=== PATIENT | female | born 1970 | race Caucasian/White ===

== ENCOUNTER 2024-06-19 22:37 | Emergency (ER) | payer BC ==
--- NOTE | 2024-06-19 22:54 | ERPHSYRPT ---
- History of Present Illness Time Seen by Provider: 06/19/24 22:52 Historian: patient Exam Limitations: no limitations Physician History: 53-year-old female presents to our emergency department for evaluation of substernal pain. Patient states she was eating and developed a substernal pain. Patient felt food was lodged in her esophagus. Patient states the food sensat ion then improved. However the pain remained. Pain described as a burning sensation that is localized and slightly to the right. No associated nausea vomiting or diaphoresis. No trauma no fever. No nausea no vomiting. No diaphoresis. Patient denies cardiovascular risk factors. No diabetes no hypertension no high cholesterol. Patient voices no other complaints or concerns at this time. Portions of this note were created with voice recognition technology. There may be grammatical, spelling, punctuation or sound alike errors Timing/Duration: today Activities at Onset: none Quality: aching Location: substernal Chest Pain Radiation: no radiation Severity of Pain-Max: moderate Severity of Pain-Current: mild Modifying Factors: Improves With: nothing Associated Symptoms: denies symptoms Prior Chest Pain/Cardiac Workup: no prior chest pain Nitro Today/Relief: no nitro taken today Aspirin Treatment Today: no aspirin today Allergies/Adverse Reactions: bacitracin Allergy (Unknown, Verified 06/19/24 22:58) cephalexin [From Keflex] Allergy (Unknown, Verified 06/19/24 22:58) neomycin [From Neosporin ([id number])] Allergy (Unknown, Verified 06/19/24 22:58) oxaprozin [From Daypro] Allergy (Unknown, Verified 06/19/24 22:58) polymyxin B [From Neosporin ([id number])] Allergy (Unknown, Verified 06/19/24 22:58) - Review of Systems Constitutional: No Symptoms, No Fever, No Chills Eyes: No Symptoms Ears, Nose, & Throat: No Symptoms Respiratory: No Symptoms, No Cough, No Dyspnea Cardiac: No Symptoms, No Chest Pain, No Edema, No Syncope Abdominal/Gastrointestinal: No Symptoms, No Abdominal Pain, No Nausea, No Vomiting, No Diarrhea Genitourinary Symptoms: No Symptoms, No Dysuria Musculoskeletal: No Symptoms, No Back Pain, No Neck Pain Skin: No Symptoms, No Rash Neurological: No Symptoms, No Dizziness, No Focal Weakness, No Sensory Changes Psychological: No Symptoms Endocrine: No Symptoms Hematologic/Lymphatic: No Symptoms Immunological/Allergic: No Symptoms All Other Systems: Reviewed and Negative - Past Medical History Neurological History: No Pertinent History Cardiac History: No Pertinent History Respiratory History: No Pertinent History Endocrine Medical History: No Pertinent History Musculoskeletal History: No Pertinent History - Nursing Vital Signs Nursing Vital Signs: Initial Vital Signs Temperature 97.8 F 06/19/24 22:39 Pulse Rate 91 H 06/19/24 22:39 Respiratory Rate 18 06/19/24 22:39 Blood Pressure 159/104 06/19/24 22:39 O2 Sat by Pulse Oximetry 100 06/19/24 22:39 Pain Scale Pain Intensity 2 - Physical Exam General Appearance: no apparent distress, alert Eye Exam: PERRL/EOMI, eyes nml inspection Ears, Nose, Throat Exam: normal ENT inspection, TMs normal, moist mucous membranes Neck Exam: normal inspection, non-tender, supple, full range of motion Respiratory Exam: normal breath sounds, lungs clear, airway intact, No respiratory distress Cardiovascular Exam: regular rate/rhythm, normal heart sounds Gastrointestinal/Abdomen Exam: soft, No tenderness, No mass Back Exam: normal inspection, No CVA tenderness, No vertebral tenderness Extremity Exam: normal inspection, normal range of motion Neurologic Exam: alert, oriented x 3, cooperative, normal mood/affect, sensation nml, No motor deficits Skin Exam: normal color, warm, dry Lymphatic Exam: No adenopathy SpO2 Interpretation: normal SpO2: 100 O2 Delivery: Room Air - Course Nursing assessment & vital signs reviewed: Yes EKG Interpreted by Me: RATE (90), Sinus Rhythm, NORMAL AXIS, NORMAL INTERVALS Ordered Tests: Active Orders 24 hr Category Date Time Status AMA [Release AMA] OM.NOW Care 06/19/24 23:41 Completed [employer]ier STAT Care 06/19/24 22:53 Completed EKG-ER Only STAT Care 06/19/24 22:53 Completed IV Insertion STAT Care 06/19/24 22:53 Completed Pulse Oximetry (ED) STAT Care 06/19/24 22:53 Completed CBC W DIFF Stat Lab 06/19/24 23:03 Completed CMP Stat Lab 06/19/24 23:03 Completed D-DIMER QUANTITATIVE Stat Lab 06/19/24 23:03 Completed TROPONIN Q4H Lab 06/19/24 23:03 Completed Medication Summary Discontinued Medications Generic Name Dose Route Start Last Admin Trade Name Freq PRN Reason Stop Dose Admin Al Hydrox/Mg Hydrox/Simethicone Confirm 06/19/24 22:59 Mag Hydrox/Al Hydrox/Simeth 30 Ml Udcup Administered 06/19/24 23:00 Dose 30 ml .ROUTE .STK-MED ONE Lidocaine HCl Confirm 06/19/24 22:59 Lidocaine Hcl 2% Viscous 15 Ml Udcup Administered 06/19/24 23:00 Dose 15 ml .ROUTE .STK-MED ONE Magnesium Hydroxide 45 ml 06/19/24 22:54 06/19/24 23:03 Mag Hydrx/Alum Hyd/Simeth/Lido 45 Ml Bottle PO 06/19/24 22:55 45 ml STAT ONE Administration Lab/Rad Data: Laboratory Result Diagrams 06/19/24 23:03 06/19/24 23:03 Laboratory Results 06/19/24 06/19/24 06/19/24 Range/Units 23:03 23:03 23:03 WBC (3.98-10.04) x10^3/uL RBC (3.93-5.22) x10^6/uL Hgb (11.2-15.7) g/dL Hct (34.1-44.9) % MCV (79.4-94.8) fL MCH (25.6-32.2) pg MCHC (32.2-35.5) g/dL RDW (11.7-14.4) % Plt Count (182-369) x10^3/uL MPV (9.4-12.3) fL Gran % (34.0-71.1) % Immature Gran % (Auto) (0.001-0.429) % Nucleat RBC Rel Count (0.00-0.2) % Eos # (Auto) (0.04-0.36) x10^3/uL Immature Gran # (Auto) (0.001-0.031) x10^3u/L Absolute Lymphs (auto) (1.18-3.74) x10^3/uL Absolute Monos (auto) (0.24-0.86) x10^3/uL Absolute Nucleated RBC (0.00-0.012) x10^3u/L Lymphocytes % (19.3-51.7) % Monocytes % (4.7-12.5) % Eosinophils % (0.7-5.8) % Basophils % (0.1-1.2) % Absolute Granulocytes (1.56-6.13) x10^3/uL Basophils # (0.01-0.08) x10^3/uL D-Dimer 0.32 (0.0-0.50) mg/L Sodium 135 (135-145) mmol/L Potassium 4.1 (3.5-5.1) mmol/L Chloride 99 (98-107) mmol/L Carbon Dioxide 30 (22-30) mmol/L Anion Gap 10.3 (5-15) MEQ/L BUN 22 H (7-17) mg/dL Creatinine 0.89 (0.52-1.04) mg/dL Estimated GFR 78.5 ML/MIN Glucose 104 (74-106) mg/dL Calcium 10.3 H (8.4-10.2) mg/dL Total Bilirubin 0.40 (0.2-1.3) mg/dL AST 26 (14-36) U/L ALT 21 (0-35) U/L Alkaline Phosphatase 67 (38-126) U/L Troponin I < 0.012 (0.000-0.033) ng/mL Serum Total Protein 6.8 (6.3-8.2) g/dL Albumin 4.2 (3.5-5.0) g/dL / Range/Units 23:03 WBC 6.5 (3.98-10.04) x10^3/uL RBC 3.92 L (3.93-5.22) x10^6/uL Hgb 13.7 (11.2-15.7) g/dL Hct 39.2 (34.1-44.9) % MCV 100.0 H (79.4-94.8) fL MCH 34.9 H (25.6-32.2) pg MCHC 34.9 (32.2-35.5) g/dL RDW 12.6 (11.7-14.4) % Plt Count 372 H (182-369) x10^3/uL MPV 9.0 L (9.4-12.3) fL Gran % 52.0 (34.0-71.1) % Immature Gran % (Auto) 0.2 (0.001-0.429) % Nucleat RBC Rel Count 0.0 (0.00-0.2) % Eos # (Auto) 0.30 (0.04-0.36) x10^3/uL Immature Gran # (Auto) 0.01 (0.001-0.031) x10^3u/L Absolute Lymphs (auto) 2.25 (1.18-3.74) x10^3/uL Absolute Monos (auto) 0.49 (0.24-0.86) x10^3/uL Absolute Nucleated RBC 0.00 (0.00-0.012) x10^3u/L Lymphocytes % 34.5 (19.3-51.7) % Monocytes % 7.5 (4.7-12.5) % Eosinophils % 4.6 (0.7-5.8) % Basophils % 1.2 (0.1-1.2) % Absolute Granulocytes 3.40 (1.56-6.13) x10^3/uL Basophils # 0.08 (0.01-0.08) x10^3/uL D-Dimer (0.0-0.50) mg/L Sodium (135-145) mmol/L Potassium (3.5-5.1) mmol/L Chloride (98-107) mmol/L Carbon Dioxide (22-30) mmol/L Anion Gap (5-15) MEQ/L BUN (7-17) mg/dL Creatinine (0.52-1.04) mg/dL Estimated GFR ML/MIN Glucose (74-106) mg/dL Calcium (8.4-10.2) mg/dL Total Bilirubin (0.2-1.3) mg/dL AST (14-36) U/L ALT (0-35) U/L Alkaline Phosphatase (38-126) U/L Troponin I (0.000-0.033) ng/mL Serum Total Protein (6.3-8.2) g/dL Albumin (3.5-5.0) g/dL - Progress Progress: improved Air Movement: good Progress Note: 53-year-old female presents emergency department for evaluation of chest pain. Chest pain started after her meal. Patient reported stuck food into her esophagus. Patient received a GI cocktail for pain. EKG revealed a normal sinus rhythm no ischemic changes. Initial troponin negative. D-dimer negative. Imaging study pending results of D-dimer. Patient observed. Patient told respiratory therapy she would like more pain medication. I was in the restroom. When I went out to reassess patient approximately 10 to 15 minutes later RN informed me that patient was leaving due to pain. I approached patient to speak to her however patient stated that she was leaving and proceeded to walk out of the ER Workup not complete. D-dimer was negative. We will not order a chest x-ray. Second troponin was not completed. Patient left before we can give her additional pain medication. Patient left before I can discussed the risks of leaving AGAINST MEDICAL ADVICE. Complexity problem addressed is moderate acute complicated. No critical care time. Complex of data reviewed and analyzed is moderate. Test ordered test reviewed results analyzed and correlated clinically with history and physical exam. Risk of complication and or risk of morbidity/mortality patient management is moderate. Vital stable. Time spent to discharge AMA is approximately 10 minutes. No social determinants of health present impede follow-up. 06/20/24 00:32 Blood Culture(s) Obtained: No Antibiotics given: No - Departure Departure Disposition: AMA Clinical Impression: Chest pain Condition: Stable Critical Care Time: No Referrals: KENN COOLEY NP [Nurse Practioner] - Follow up/PCP as directed
[2024-06-19 22:57] VITALS: BP 159/104; PULSE 91; RESP 18; TEMP 97.8
[2024-06-19] MEDS ORDERED: MAALOX ES 30 ML UNIT DOSE ONE (22:59)
[2024-06-19] MEDS ORDERED: XYLOCAINE VISCOUS 2% 15 ML CUP ONE (22:59)
[2024-06-19] MEDS: GI COCKTAIL 45 ML (Maalox/Lidocaine) PO ONE (23:03)
[2024-06-19 23:07] LABS: BASOPHIL % 1.2 % (0.1-1.2); Basophil (Absolute #) 0.08 x10^3/uL (0.01-0.08); Eosinophil % 4.6 % (0.7-5.8); Hematocrit 39.2 % (34.1-44.9); Hemoglobin 13.7 g/dL (11.2-15.7); IMMATURE GRAN # 0.01 x10^3u/L (0.001-0.031); IMMATURE GRAN % 0.2 % (0.001-0.429); Lymphocyte (Absolute #) 2.25 x10^3/uL (1.18-3.74); Lymphocytes % 34.5 % (19.3-51.7); Mean Corpuscular Hemoglobin 34.9 pg (25.6-32.2); Mean Corpuscular Hgb Concent. 34.9 g/dL (32.2-35.5); Monocyte (Absolute #) 0.49 x10^3/uL (0.24-0.86); Monocytes % 7.5 % (4.7-12.5); Platelet Count 372 x10^3/uL (182-369); Red Blood Count 3.92 x10^6/uL (3.93-5.22); Red Cell Distribution Width 12.6 % (11.7-14.4); White Blood Count 6.5 x10^3/uL (3.98-10.04)
[2024-06-19 23:21] LABS: ALBUMIN 4.2 g/dL (3.5-5.0); ANION GAP 10.3 MEQ/L (5-15); BILIRUBIN,TOTAL 0.4 mg/dL (0.2-1.3); Calcium 10.3 mg/dL (8.4-10.2); Creatinine 1 0.89 mg/dL (0.52-1.04); EST GLOMERULAR FILTRATION RATE 78.5 ML/MIN; Potassium 4.1 mmol/L (3.5-5.1); Total Protein 6.8 g/dL (6.3-8.2)
[2024-06-20] VITALS: O2SAT 100
== END 2024-06-19 23:39 | disposition left against medical advice (07) ==
LOC: ED 22:37
DX: R07.9 Chest pain, unspecified (principal)
CPT/HCPCS: 36000; 36415; 80053; 84484; 85025; 85379; 93005; 93041; 94760; 99284; A9270-GY